=== PATIENT | male | born 1955 | race Caucasian/White ===

== ENCOUNTER → 2021-03-07 08:29 | Outpatient (CLI) | payer MEDICARE, OTHER, SELFPAY ==
--- NOTE | ~2021-03-07 | MR_ITS ---
EXAMINATION: MR knee LT wo con DATE: 03/07/2021 09:17 INDICATION: Left knee pain. TECHNIQUE: Magnetic resonance imaging (MRI) of the left knee was performed without intravenous contra st. Sequences included axial PD-weighted FS FSE, coronal PD-weighted FSE and PD-weighted FS FSE, sagi ttal PD-weighted FSE, and sagittal T2-weighted FS FSE. COMPARISON: None. FINDINGS: Medial compartment: There is a complex tear involving body, posterior horn, and posterior root of medial meniscus. There is shallow partial-thickness cartilage loss of tibial condyle. There is partial-thickness cartilage l oss of femoral condyle, deep at the central and lateral articular surface. Lateral compartment: Lateral meniscus is normal. There is shallow partial-thickness college loss of tibial condyle. There is cartilage surface irregularity of femoral condyle. Patellofemoral compartment: There is shallow partial-thickness cartilage loss of patellar median ridge, medial facet, and lateral facet. There is partial-thickness cartilage loss of trochlea, deep at the medial trochlea. Ligaments and tendons: Anterior cruciate ligament demonstrates thickening and increased signal, consistent with mucoid degen eration. There is a 1.7 cm intraosseous ganglion with surrounding edema-like marrow signal intensity in tibial condyle at the anterior cruciate ligament footplate. Posterior cruciate ligament is normal. There are changes of prior sprains of medial collateral ligament and fibular collateral ligament lay racterized by increased signal intensity proximally. There is mild patellar tendinopathy. Fluid: There is a small knee joint effusion. There is mild prepatellar and superficial infrapatellar bursiti s. IMPRESSION: 1. Moderate chondrosis of medial and patellofemoral compartments and mild chondrosis of lateral isabel rtment. 2. Tear of medial meniscus. 3. Small knee joint effusion. 4. Mucoid degeneration of anterior cruciate ligament with adjacent intraosseous ganglion in the proxi mal tibia. Reviewed, dictated and finalized at location A. ED TECH IMPRESSION: 1. Moderate chondrosis of medial and patellofemoral compartments and mild chond rosis of lateral compartment. 2. Tear of medial meniscus. 3. Small knee joint effusion. 4. Mucoid degeneration of anterior cruciate ligament with adjacent intraosseous ganglion in the proximal tibia.
== END ==
PROVIDERS: Visit Provider Orthopaedic Surgery
DX: M17.12 Unilateral primary osteoarthritis, left knee (principal); S83.222A Peripheral tear of medial meniscus, current injury, left knee, initial encounter; M70.52 Other bursitis of knee, left knee
CPT/HCPCS: 73721